=== PATIENT | male | born 1995 | race Caucasian/White ===

== ENCOUNTER 2017-07-13 17:48 | Inpatient (IN) | payer MEDICAID ==
[~2017-07-13] VITALS: Ht 172.7 cm; Wt 73.7 kg
[2017-07-13 17:53] VITALS: Ht 172.7 cm; Wt 73.7 kg
[2017-07-13 18:37] LABS: BASOPHIL % 0.4 % (0-2); PLATELET COUNT 225 x10^3mcL (130-400); RED CELL DISTRIBUTION WIDTH 14.2 % (11.5-14.5)
[2017-07-13 18:44] LABS: ALBUMIN 4.4 g/dL (3.4-5.0); ALKALINE PHOSPHATASE 104 U/L (46-116); ALT/SGPT 24 U/L (16-63); AMYLASE 58 U/L (25-115); AST/SGOT 23 U/L (15-37); BILIRUBIN TOTAL 0.8 mg/dL (0.20-1.00); CALCIUM 8.7 mg/dL (8.5-10.1); CARBON DIOXIDE 23.4 mmol/L (21-32); CHLORIDE SERUM 102 mmol/L (98-107); CREATININE SERUM 1.3 mg/dL (0.7-1.3); GFR1 > 60 mL/min; GLUCOSE SERUM 147 mg/dL (74-106); LIPASE 102 IU/L (73-393); SODIUM SERUM 137 mmol/L (136-145)
[2017-07-13 18:48] LABS: POTASSIUM SERUM 2.8 mmol/L (3.5-5.1)
[2017-07-13 22:02] LABS: MAGNESIUM 2.2 mg/dL (1.8-2.4); PHOSPHOROUS 2.5 mg/dL (2.5-4.9)
[2017-07-13 22:03] LABS: CHOLESTEROL/HDL RATIO 2.6; T3 TOTAL 1.01 ng/mL
[2017-07-13 22:09] LABS: FREE T4 1.36 ng/dL (0.76-1.46); FREE THYROXINE INDEX 2.9 ug/dL (1.4-4.5); T4(THYROXINE) 8.3 ug/dL (4.7-13.3)
[2017-07-13 22:21] VITALS: BP 122/70
[2017-07-14 00:18] LABS: microscopic required? NO
[2017-07-14 00:30] LABS: urine erythrocyte NEGATIVE (NEGATIVE)
[2017-07-14 01:06] LABS: AMPHETAMINE QUAL UR NONE DETECTED (NEG <=1000)
[2017-07-14 05:02] VITALS: BP 110/70
[2017-07-14 09:24] LABS: BASOPHIL % 0.3 % (0-2); PLATELET COUNT 185 x10^3mcL (130-400); RED CELL DISTRIBUTION WIDTH 14.1 % (11.5-14.5)
[2017-07-14 09:26] VITALS: BP 111/65
[2017-07-14 09:37] LABS: CALCIUM 8.2 mg/dL (8.5-10.1); CARBON DIOXIDE 24.3 mmol/L (21-32); CHLORIDE SERUM 106 mmol/L (98-107); CREATININE SERUM 0.8 mg/dL (0.7-1.3); GFR1 > 60 mL/min; GLUCOSE SERUM 102 mg/dL (74-106); POTASSIUM SERUM 3.8 mmol/L (3.5-5.1); SODIUM SERUM 141 mmol/L (136-145)
[2017-07-14 17:39] VITALS: BP 111/75
[2017-07-14 19:30] VITALS: BP 100/60
[2017-07-15 05:26] VITALS: BP 106/69
[2017-07-15 06:46] LABS: BASOPHIL % 0.4 % (0-2); PLATELET COUNT 183 x10^3mcL (130-400); RED CELL DISTRIBUTION WIDTH 14.3 % (11.5-14.5)
[2017-07-15 07:42] LABS: CARBON DIOXIDE 23.9 mmol/L (21-32); CHLORIDE SERUM 107 mmol/L (98-107); GLUCOSE SERUM 88 mg/dL (74-106); POTASSIUM SERUM 3.9 mmol/L (3.5-5.1); SODIUM SERUM 139 mmol/L (136-145)
[2017-07-15 07:43] LABS: CALCIUM 8.5 mg/dL (8.5-10.1); CREATININE SERUM 0.7 mg/dL (0.7-1.3); GFR1 > 60 mL/min
[2017-07-15 08:56] VITALS: BP 109/63
[2017-07-15 12:30] VITALS: BP 108/68
[2017-07-15 16:40] VITALS: BP 124/73
[2017-07-15 20:53] VITALS: BP 123/78
[2017-07-16 06:15] VITALS: BP 120/78
[2017-07-16 06:37] LABS: CALCIUM 9.1 mg/dL (8.5-10.1); CARBON DIOXIDE 25.3 mmol/L (21-32); CHLORIDE SERUM 105 mmol/L (98-107); CREATININE SERUM 0.7 mg/dL (0.7-1.3); GFR1 > 60 mL/min; GLUCOSE SERUM 81 mg/dL (74-106); MAGNESIUM 2.3 mg/dL (1.8-2.4); PHOSPHOROUS 4.1 mg/dL (2.5-4.9); POTASSIUM SERUM 4.2 mmol/L (3.5-5.1); SODIUM SERUM 142 mmol/L (136-145)
[2017-07-16 07:57] LABS: BASOPHIL % 0.6 % (0-2); PLATELET COUNT 227 x10^3mcL (130-400); RED CELL DISTRIBUTION WIDTH 14.5 % (11.5-14.5)
[2017-07-16] MEDS ORDERED: LAC PO (12:02)
[2017-07-16] MEDS ORDERED: LEVAQUIN750 MG PO (12:02)
[2017-07-16 12:11] VITALS: BP 120/78
== END 2017-07-16 13:30 | disposition home or self-care (01) | DRG 249 ==
LOC: ED 17:48 → DU 21:10 → MU 21:10 → DU 22:09 → MU 07-14 10:50
PROVIDERS: Emergency Medicine; Family Medicine; Internal Medicine Gastroenterology
PROC: 0DB68ZX Excision of Stomach, Via Natural or Artificial Opening Endoscopic, Diagnostic (ICD-10-PCS; principal; 2017-07-16 09:00)
PROC: 0DJD8ZZ Inspection of Lower Intestinal Tract, Via Natural or Artificial Opening Endoscopic (ICD-10-PCS; 2017-07-16 09:00)
DX: K52.9 Noninfective gastroenteritis and colitis, unspecified (principal); J18.9 Pneumonia, unspecified organism; E87.6 Hypokalemia; M99.03 Segmental and somatic dysfunction of lumbar region; F12.10 Cannabis abuse, uncomplicated; Z68.24 Body mass index [BMI] 24.0-24.9, adult
CPT/HCPCS: 43235; 45378; 83880; 84439; 87046; 87046-59; 87804; 94150; J1200; J1610; J1956; J2250; J2270; J2310; J2405; J3010; J3480; J3490; J7030; J7050; J7620; Q0092; Q9967